=== PATIENT | male | born 1940 | race Caucasian/White ===

== ENCOUNTER → 2023-07-17 13:29 | Outpatient (REF) | payer MEDICARE, SELFPAY ==
[2023-07-17 19:09] LABS: % Basophils 0.6 % (0-2); % Eosinophils 5.6 % (0-6); % Immature Granulocytes 0.3 % (0-0.5); % Lymphocytes 28.2 % (20.5-51.1); % Monocytes 6.8 % (1.7-9.3); % Neutrophils 58.5 % (42.2-75.2); Absolute Eosinophils 0.4 10^3/uL (0-0.7); Absolute Lymphocytes 1.8 10^3/uL (1.2-3.4); Absolute Monocytes 0.4 10^3/uL (0.1-0.6); Absolute Neutrophils 3.8 10^3/uL (1.4-6.5); Hemoglobin 12.5 g/dL (13.0-18.0); Mean Corp Hgb Conc. 33.8 g/dL (33.0-37.0); Mean Corpuscular Hgb 34.6 pg (27.0-31.0); Mean Corpuscular Volume 102.5 fL (80.0-94.0); Mean Platelet Volume 10.1 fL (7.4-10.4); Nucleated Red Blood Cells % 0 % (-); Platelet Count 295 10^3/uL (130-400); Red Blood Cell Count 3.61 10^6/uL (4.70-6.10); Red Cell Dist. Width 12.6 % (11.5-14.5); White Blood Cell Count 6.5 10^3/uL (4.8-10.8)
[2023-07-17 19:28] LABS: ALT (SGPT) 11 U/L (0-50); AST (SGOT) 21 U/L (17-59); Albumin 4.7 g/dl (3.5-5.0); Alkaline Phosphatase 122 U/L (38-126); Blood Urea Nitrogen 22 mg/dl (9-20); Calcium 9.9 mg/dl (8.4-10.2); Carbon Dioxide 25 mmol/L (22-30); Chloride 101 mmol/L (98-107); Glucose 90 mg/dl (70-99); HDL Cholesterol 106 mg/dl; Potassium 5.2 mmol/L (3.5-5.1); Sodium 137 mmol/L (135-145); Total Bilirubin 0.7 mg/dl (0.2-1.3); Total Protein 7.6 g/dl (6.3-8.2); Triglyceride 116 mg/dl (10-149); Very Low Density Lipoprotein 23 mg/dl (0-30); eGFR 34.79
[2023-07-17 19:34] LABS: LDL Cholesterol, Calculated 184 mg/dl; Total Cholesterol 313 mg/dl (50-199)
== END ==
LOC: CLAB 13:29
PROVIDERS: ATTENDING PHYSICIAN Physician Assistant Medical
DX: I10 Essential (primary) hypertension (principal); D64.9 Anemia, unspecified; E78.2 Mixed hyperlipidemia
CPT/HCPCS: 36415; 80053; 80061; 85025

== ENCOUNTER 2023-08-14 14:52 | Emergency (ER) | payer MEDICARE, SELFPAY ==
[2023-08-14 14:52] VITALS: BP 131/58
[2023-08-14 14:54] VITALS: BP 131/58; BMI 23.7
[2023-08-14 15:00] VITALS: BP 132/58
--- NOTE | 2023-08-14 15:28 | ED.GENMED ---
History of Present Illness
<Jakub Reina PA-C - Last Filed: 08/14/23 15:35>
General
Chief Complaint: Post Operative Problem(s)
Source: patient
Exam Limitations: none
Time Seen by Provider: 08/14/23 15:14
Travel History
Have you had any contact with someone who has COVID-19?: No
Do you have any symptoms of coronavirus? Fever > 100 degrees, chills, cough, shortness of breath, sore throat, loss of taste or smell, muscle aches, or headache?: No
History of Present Illness
History of Present Illness:
82-year-old male presents complaining of pain and swelling to left inguinal region. 6 days ago he had an inguinal hernia repair. He saw his family doctor in follow-up today and they sent him here for evaluation and imaging secondary to increased
swelling of the left inguinal site. Patient denies fever. He vomited once yesterday. He has not moved his bowels significantly.
Past History
<Jakub Reina PA-C - Last Filed: 08/14/23 15:35>
Past History
ED Past Medical History: CAD, Hypercholesterolemia and Other
ED Past Surgical History: Other
Social History
Tobacco: Smoker
Drug: None
Personal: Partner
Living: with family
Family History
Family History: Other
Phy Exam
<Jakub Reina PA-C - Last Filed: 08/14/23 15:35>
Physical Exam
Physical Exam:
General: Well-appearing male no acute respiratory distress
HEENT: Normocephalic atraumatic
Heart: Regular rate and rhythm no murmurs
Lungs: CTA No wheeze
Abd: soft, tedner to LLQ, mild swelling about incision. No erythema. No drainage. Glue still intact. This is somewhat firm to the touch.
Extremities: No cyanosis
Course
<Jakub Reina PA-C - Last Filed: 08/14/23 15:35>
Orders/Labs/Results
Orders:
Orders
08/14/23 15:22
CT Abd/pel Without Iv Or Oral Urgent
Reason For Exam: abdominal pain, recent left inguinal hernia repair
Complete Blood Count/With Diff Urgent
Comprehensive Metabolic Panel Urgent
Lactate Level [Lactic Acid] Urgent
08/14/23 16:35
Case Management Consult ONCE
Case Management Consult: Discharge Planning
Abnormal Lab Results
08/14/23
15:22
RBC 2.92 L 10^6/uL
(4.70-6.10)
Hgb 10.1 L g/dL
(13.0-18.0)
Hct 29.4 L %
(39.0-52.0)
MCV 100.7 H fL
(80.0-94.0)
MCH 34.6 H pg
(27.0-31.0)
Plt Count 418 H 10^3/uL
(130-400)
Abs Immat Gran (auto) 0.1 H 10^3/uL
(0-0.05)
Absolute Monos (auto) 0.7 H 10^3/uL
(0.1-0.6)
Immature Gran % 1.0 H %
(0-0.5)
Lymphocytes % 15.6 L %
(20.5-51.1)
BUN 33 H mg/dl
(9-20)
Creatinine 2.1 H mg/dL
(0.7-1.3)
Glucose 105 H mg/dl
(70-99)
08/14/23 15:22
08/14/23 15:22
Vital Signs
Initial and Last Documented VS:
Initial Vital Signs
BP
131/58
08/14/23 14:52
Last Documented Vital Signs
Temp Pulse Resp BP Pulse Ox
98.6 F 72 20 141/54 97
08/14/23 14:54 08/14/23 20:30 08/14/23 20:30 08/14/23 20:00 08/14/23 20:15
<Jamey Fierro PA-C - Last Filed: 08/14/23 20:56>
Orders/Labs/Results
Orders:
Orders
08/14/23 15:22
CT Abd/pel Without Iv Or Oral Urgent
Reason For Exam: abdominal pain, recent left inguinal hernia repair
Complete Blood Count/With Diff Urgent
Comprehensive Metabolic Panel Urgent
Lactate Level [Lactic Acid] Urgent
08/14/23 16:35
Case Management Consult ONCE
Case Management Consult: Discharge Planning
Abnormal Lab Results
08/14/23
15:22
RBC 2.92 L 10^6/uL
(4.70-6.10)
Hgb 10.1 L g/dL
(13.0-18.0)
Hct 29.4 L %
(39.0-52.0)
MCV 100.7 H fL
(80.0-94.0)
MCH 34.6 H pg
(27.0-31.0)
Plt Count 418 H 10^3/uL
(130-400)
Abs Immat Gran (auto) 0.1 H 10^3/uL
(0-0.05)
Absolute Monos (auto) 0.7 H 10^3/uL
(0.1-0.6)
Immature Gran % 1.0 H %
(0-0.5)
Lymphocytes % 15.6 L %
(20.5-51.1)
BUN 33 H mg/dl
(9-20)
Creatinine 2.1 H mg/dL
(0.7-1.3)
Glucose 105 H mg/dl
(70-99)
08/14/23 15:22
08/14/23 15:22
Vital Signs
Initial and Last Documented VS:
Initial Vital Signs
BP
131/58
08/14/23 14:52
Last Documented Vital Signs
Temp Pulse Resp BP Pulse Ox
98.6 F 72 20 141/54 97
08/14/23 14:54 08/14/23 20:30 08/14/23 20:30 08/14/23 20:00 08/14/23 20:15
<Jakub Reina PA-C - Last Filed: 08/14/23 15:35>
MDM/Problems Addressed
Differential Diagnosis Includes:
Left lower abdominal pain. Recent inguinal hernia repair. Will check for abscess or fluid collection such as seroma or recurrent hernia with CT scan. Labs pending.
<Jamey Fierro PA-C - Last Filed: 08/14/23 20:56>
*Critical Care Note
Total Time (30-74mins, 75-104mins- exclusive of procedures): Not Applicable
<Jamey Fierro PA-C - Last Filed: 08/14/23 20:56>
Update Note
Update Note:
Assumed care of patient at shift change 1800 from Anant Reina PA-C, awaiting CT results. Patient is 1 week status post left inguinal hernia repair reportedly done at [facility]. Saw his PCP today and was referred in due to
increased swelling.
1944: CT report reviewed. Fluid is likely anticipated postoperative swelling, patient reexamined individually by myself, wound is well-approximated with no dehiscence or erythema, no warmth. No clinical signs of infection. Patient has scheduled
follow-up with his surgeon in 3 days, no indication for antibiotics
ED Attending Note
<Jakub Reina PA-C - Last Filed: 08/14/23 15:35>
-
Portions of this chart may have been created with voice recognition software.� Occasional wrong word or��sound alike� substitutions may have occurred due to the inherent limitations of voice recognition software.
Discharge Plan
Departure
Patient Disposition: Home (Routine Discharge)
Date of Disposition: 08/14/23
Time of Disposition: 20:12
Patient with high blood pressure during this ER visit?: No
Discharge Problem:
Inguinal swelling, Post operative fluid collection
Prescriptions:
No Action
citalopram 20 MG tablet
20 mg PO DAILY
finasteride 5 MG tablet
5 mg PO DAILY
hydrocodone-acetaminophen 1 EACH tablet
1 - 2 ea PO PRN PRN (Reason: pain)
aspirin 81 MG tablet,delayed release (DR/EC)
81 mg PO DAILY
gabapentin 100 MG capsule
300 mg PO HS
omega 5-kih-jmn-fish oil [Fish Oil] 1 EACH capsule
1 ea PO DAILY
red yeast rice 600 MG tablet
1,200 mg PO DAILY
prednisone 10 MG tablet
10 mg PO DAILY Qty: 12 0RF
albuterol sulfate 1 PUFF HFA aerosol inhaler
2 puff inhalation R Q4HPRN PRN (Reason: shortness of breath or wheeze) Qty: 1 0RF
oxycodone 5 MG tablet
5 mg PO Q4HPRN PRN (Reason: breakthrough/severe pain) Qty: 10 0RF
prochlorperazine maleate 10 MG tablet
10 mg PO Q8HPRN PRN (Reason: vomiting) Qty: 10 0RF
Referrals:
Jamey Anna PA-C [Family Provider] -
Activity Restrictions/Additional Instructions:
Follow up with your surgeon on Thursday
The fluid seen on CT scan is likely normal post operative fluid. There is no sign of infection on imaging or lab work
Interventions
Interventions:
*Risk Screen - Suicide Last Done: 08/14/23 14:54
*General Assessment Last Done: 08/14/23 14:54
*Neglect/Abuse Screening Last Done: 08/14/23 14:54
ED- Fall Risk Assessment Last Done: 08/14/23 15:02
*ED COVID-19 Vaccine History Last Done: 08/14/23 14:54
ED-Skin Assessment Last Done: 08/14/23 15:02
Discharge Date and Time
Print Language: BOLIVIAN
[2023-08-14 15:39] LABS: % Basophils 0.5 % (0-2); % Eosinophils 2.2 % (0-6); % Lymphocytes 15.6 % (20.5-51.1); % Monocytes 8.7 % (1.7-9.3); Absolute Eosinophils 0.2 10^3/uL (0-0.7); Absolute Immature Granulocytes 0.1 10^3/uL (0-0.05); Absolute Lymphocytes 1.3 10^3/uL (1.2-3.4); Absolute Monocytes 0.7 10^3/uL (0.1-0.6); Absolute Neutrophils 5.8 10^3/uL (1.4-6.5); Hematocrit 29.4 % (39.0-52.0); Hemoglobin 10.1 g/dL (13.0-18.0); Mean Corp Hgb Conc. 34.4 g/dL (33.0-37.0); Mean Corpuscular Hgb 34.6 pg (27.0-31.0); Mean Corpuscular Volume 100.7 fL (80.0-94.0); Mean Platelet Volume 9.8 fL (7.4-10.4); Nucleated Red Blood Cells % 0 % (-); Platelet Count 418 10^3/uL (130-400); Red Blood Cell Count 2.92 10^6/uL (4.70-6.10); Red Cell Dist. Width 12.3 % (11.5-14.5); White Blood Cell Count 8.1 10^3/uL (4.8-10.8)
[2023-08-14 15:51] LABS: Lactic Acid 1.1 mmol/L (0.7-2.0)
[2023-08-14 15:58] LABS: ALT (SGPT) 15 U/L (0-50); AST (SGOT) 24 U/L (17-59); Albumin 3.7 g/dl (3.5-5.0); Alkaline Phosphatase 104 U/L (38-126); Blood Urea Nitrogen 33 mg/dl (9-20); Calcium 9.1 mg/dl (8.4-10.2); Carbon Dioxide 22 mmol/L (22-30); Chloride 104 mmol/L (98-107); Estimated Creatinine Clearance 22 ml/min; Glucose 105 mg/dl (70-99); Potassium 4.7 mmol/L (3.5-5.1); Sodium 135 mmol/L (135-145); Total Bilirubin 0.7 mg/dl (0.2-1.3); Total Protein 6.6 g/dl (6.3-8.2); eGFR 30.85
[2023-08-14 16:00] VITALS: BP 128/58
[2023-08-14 17:00] VITALS: BP 114/62
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
[2023-08-14 20:00] VITALS: BP 141/54
== END 2023-08-14 20:45 | disposition home or self-care (01) ==
LOC: EMR 14:52
PROVIDERS: Physician Assistant; EMERGENCY PHYSICIAN Emergency Medicine; FAMILY PHYSICIAN Physician Assistant Medical
DX: R19.09 Other intra-abdominal and pelvic swelling, mass and lump (principal); L76.34 Postprocedural seroma of skin and subcutaneous tissue following other procedure; Z98.890 Other specified postprocedural states; Y83.8 Other surgical procedures as the cause of abnormal reaction of the patient, or of later complication, without mention of misadventure at the time of the procedure; F17.200 Nicotine dependence, unspecified, uncomplicated
CPT/HCPCS: 99284; 74176; 80053; 83605; 85025

== ENCOUNTER 2023-08-31 11:44 | Emergency (ER) | payer MEDICARE, SELFPAY ==
[2023-08-31 11:48] VITALS: BP 130/59
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
[2023-08-31 15:57] VITALS: BP 131/65; BMI 21.9
[2023-08-31 16:56] LABS: % Basophils 0.5 % (0-2); % Eosinophils 3.5 % (0-6); % Immature Granulocytes 0.3 % (0-0.5); % Lymphocytes 24.7 % (20.5-51.1); % Monocytes 8.4 % (1.7-9.3); % Neutrophils 62.6 % (42.2-75.2); Absolute Eosinophils 0.2 10^3/uL (0-0.7); Absolute Lymphocytes 1.5 10^3/uL (1.2-3.4); Absolute Monocytes 0.5 10^3/uL (0.1-0.6); Absolute Neutrophils 3.7 10^3/uL (1.4-6.5); Hematocrit 30.4 % (39.0-52.0); Hemoglobin 10.3 g/dL (13.0-18.0); Mean Corp Hgb Conc. 33.9 g/dL (33.0-37.0); Mean Corpuscular Hgb 34.2 pg (27.0-31.0); Mean Platelet Volume 9.7 fL (7.4-10.4); Nucleated Red Blood Cells % 0 % (-); Platelet Count 315 10^3/uL (130-400); Red Blood Cell Count 3.01 10^6/uL (4.70-6.10); Red Cell Dist. Width 12.8 % (11.5-14.5)
[2023-08-31 17:17] LABS: ALT (SGPT) 10 U/L (0-50); AST (SGOT) 19 U/L (17-59); Albumin 4.1 g/dl (3.5-5.0); Alkaline Phosphatase 115 U/L (38-126); Blood Urea Nitrogen 33 mg/dl (9-20); Calcium 9.3 mg/dl (8.4-10.2); Carbon Dioxide 23 mmol/L (22-30); Chloride 104 mmol/L (98-107); Estimated Creatinine Clearance 25 ml/min; Glucose 104 mg/dl (70-99); Potassium 5.1 mmol/L (3.5-5.1); Sodium 139 mmol/L (135-145); Total Bilirubin 0.5 mg/dl (0.2-1.3); Total Protein 7.2 g/dl (6.3-8.2); eGFR 32.71
[2023-08-31 18:20] LABS: Urine Albumin 2+ (Neg - Trace); Urine Bilirubin Negative (Negative); Urine Character Clear (Clear); Urine Color Yellow; Urine Glucose Negative (Negative); Urine Ketone Negative (Negative); Urine Leukocyte Negative (Negative); Urine Nitrite Negative (Negative); Urine Occult Blood Negative (Negative); Urine Specific Gravity 1.015 (<1.030); Urine Urobilinogen Negative (Neg - 1+)
[2023-08-31 18:43] LABS: Urine Red Blood Cell 0-2 /HPF (0-2)
[2023-08-31] MEDS: NORCO 5/325 1 TABLET PO (19:16)
[2023-08-31 19:17] VITALS: BP 144/66
== END 2023-08-31 21:03 | disposition home or self-care (01) ==
LOC: EMR 11:44
PROVIDERS: Physician Assistant; EMERGENCY PHYSICIAN Emergency Medicine; FAMILY PHYSICIAN Physician Assistant Medical
DX: T81.89XA Other complications of procedures, not elsewhere classified, initial encounter (principal); N50.812 Left testicular pain; N50.89 Other specified disorders of the male genital organs; Y83.8 Other surgical procedures as the cause of abnormal reaction of the patient, or of later complication, without mention of misadventure at the time of the procedure; M25.552 Pain in left hip; I25.10 Atherosclerotic heart disease of native coronary artery without angina pectoris; E78.00 Pure hypercholesterolemia, unspecified; J44.9 Chronic obstructive pulmonary disease, unspecified; N40.0 Benign prostatic hyperplasia without lower urinary tract symptoms; M19.90 Unspecified osteoarthritis, unspecified site; F41.9 Anxiety disorder, unspecified; G89.29 Other chronic pain; G62.9 Polyneuropathy, unspecified; F17.200 Nicotine dependence, unspecified, uncomplicated; Z96.653 Presence of artificial knee joint, bilateral; Z88.1 Allergy status to other antibiotic agents; Z88.8 Allergy status to other drugs, medicaments and biological substances; Z79.82 Long term (current) use of aspirin
CPT/HCPCS: 99284; 76870; 80053; 81003; 81015; 85025; 93976

== ENCOUNTER → 2023-09-23 08:54 | Outpatient (REF) | payer MEDICARE, SELFPAY | LOC: REG 08:54 | PROVIDERS: ATTENDING PHYSICIAN Physician Assistant Medical | DX: M25.552 Pain in left hip (principal) | CPT/HCPCS: 73502 ==

== ENCOUNTER → 2023-11-12 13:09 | Outpatient (REF) | payer MEDICARE, SELFPAY | LOC: PAVMRI 13:09 | PROVIDERS: ATTENDING PHYSICIAN Physician Assistant; FAMILY PHYSICIAN Physician Assistant Medical | DX: M54.16 Radiculopathy, lumbar region (principal) | CPT/HCPCS: 72148 ==

== ENCOUNTER → 2024-01-11 12:16 | Outpatient (REF) | payer MEDICARE, SELFPAY ==
[2024-01-11 13:28] LABS: Blood Urea Nitrogen 28 mg/dl (9-20); Calcium 9.4 mg/dl (8.4-10.2); Carbon Dioxide 22 mmol/L (22-30); Chloride 107 mmol/L (98-107); Glucose 92 mg/dl (70-99); Potassium 4.9 mmol/L (3.5-5.1); Sodium 143 mmol/L (135-145); eGFR 30.66
== END ==
LOC: RCS 12:16
PROVIDERS: ATTENDING PHYSICIAN Physical Medicine & Rehabilitation; FAMILY PHYSICIAN Physician Assistant Medical
DX: Z01.818 Encounter for other preprocedural examination (principal)
CPT/HCPCS: 36415; 80048; 93005

== ENCOUNTER → 2024-03-16 13:01 | Outpatient (REF) | payer OTHER, SELFPAY ==
[2024-03-16 14:20] LABS: % Basophils 0.5 % (0-2); % Eosinophils 5.7 % (0-6); % Immature Granulocytes 0.3 % (0-0.5); % Lymphocytes 30.4 % (20.5-51.1); % Monocytes 6.2 % (1.7-9.3); % Neutrophils 56.9 % (42.2-75.2); Absolute Eosinophils 0.4 10^3/uL (0-0.7); Absolute Monocytes 0.4 10^3/uL (0.1-0.6); Absolute Neutrophils 3.8 10^3/uL (1.4-6.5); Hematocrit 30.2 % (39.0-52.0); Hemoglobin 9.6 g/dL (13.0-18.0); Mean Corp Hgb Conc. 31.8 g/dL (33.0-37.0); Mean Corpuscular Hgb 34.5 pg (27.0-31.0); Mean Corpuscular Volume 108.6 fL (80.0-94.0); Mean Platelet Volume 9.9 fL (7.4-10.4); Nucleated Red Blood Cells % 0 % (-); Platelet Count 266 10^3/uL (130-400); Red Blood Cell Count 2.78 10^6/uL (4.70-6.10); Red Cell Dist. Width 12.6 % (11.5-14.5); White Blood Cell Count 6.6 10^3/uL (4.8-10.8)
== END ==
LOC: REG 13:01
PROVIDERS: ATTENDING PHYSICIAN Family Medicine; OTHER PHYSICIAN Specialist
DX: D64.9 Anemia, unspecified (principal)
CPT/HCPCS: 36415; 85025

== ENCOUNTER → 2024-03-25 12:10 | Outpatient (REF) | payer OTHER, SELFPAY ==
[2024-03-25 13:48] VITALS: BMI 26.7
[2024-03-25 13:55] LABS: Hematocrit 28.2 % (39.0-52.0); Hemoglobin 9.5 g/dL (13.0-18.0); Mean Corp Hgb Conc. 33.7 g/dL (33.0-37.0); Mean Corpuscular Hgb 35.7 pg (27.0-31.0); Mean Platelet Volume 9.8 fL (7.4-10.4); Platelet Count 319 10^3/uL (130-400); Red Blood Cell Count 2.66 10^6/uL (4.70-6.10); Red Cell Dist. Width 12.8 % (11.5-14.5); White Blood Cell Count 6.9 10^3/uL (4.8-10.8)
[2024-03-25 14:54] LABS: ALT (SGPT) 11 U/L (0-50); AST (SGOT) 16 U/L (17-59); Albumin 4.2 g/dl (3.5-5.0); Alkaline Phosphatase 89 U/L (38-126); Blood Urea Nitrogen 28 mg/dl (9-20); Calcium 9.1 mg/dl (8.4-10.2); Carbon Dioxide 23 mmol/L (22-30); Chloride 109 mmol/L (98-107); Estimated Creatinine Clearance 19 ml/min; Glucose 105 mg/dl (70-99); Iron 72 ug/dl (49-181); Potassium 4.9 mmol/L (3.5-5.1); Sodium 142 mmol/L (135-145); Total Bilirubin 0.2 mg/dl (0.2-1.3); Total Protein 6.8 g/dl (6.3-8.2); eGFR 28.99
[2024-03-25 15:03] LABS: Percent Saturation 29 % (20-50); Total Iron Binding Capacity 246 ug/dl (261-462)
[2024-03-25 16:20] LABS: Vitamin B12 236 pg/ml (239-931)
[2024-03-26 08:47] LABS: Glycohemoglobin (HgbA1c) 5.7 % (4.0-5.6)
[2024-03-30 12:46] VITALS: BMI 26.7
== END ==
LOC: REG 12:10
PROVIDERS: ATTENDING PHYSICIAN Specialist; FAMILY PHYSICIAN Family Medicine; REFERRING PHYSICIAN Surgery Vascular Surgery
DX: M16.12 Unilateral primary osteoarthritis, left hip (principal)
CPT/HCPCS: 36415; 80053; 82607; 82728; 83036; 83540; 83550; 85027; 86850; 86900; 86901; 87070

== ENCOUNTER → 2024-04-04 08:37 | Outpatient (REF) | payer OTHER, SELFPAY | LOC: RAD 08:37 | PROVIDERS: ATTENDING PHYSICIAN Surgery Vascular Surgery; FAMILY PHYSICIAN Family Medicine | DX: I73.9 Peripheral vascular disease, unspecified (principal); I65.21 Occlusion and stenosis of right carotid artery | CPT/HCPCS: 93880; 93922 ==

== ENCOUNTER → 2024-05-03 10:30 | Outpatient (REF) | payer MEDICARE, SELFPAY ==
[2024-05-03 12:21] LABS: Hematocrit 31.7 % (39.0-52.0); Hemoglobin 10.4 g/dL (13.0-18.0); Mean Corp Hgb Conc. 32.8 g/dL (33.0-37.0); Mean Corpuscular Hgb 34.8 pg (27.0-31.0); Mean Platelet Volume 10.2 fL (7.4-10.4); Platelet Count 254 10^3/uL (130-400); Red Blood Cell Count 2.99 10^6/uL (4.70-6.10); Red Cell Dist. Width 12.8 % (11.5-14.5); White Blood Cell Count 5.7 10^3/uL (4.8-10.8)
[2024-05-03 12:46] LABS: ALT (SGPT) 11 U/L (0-50); AST (SGOT) 18 U/L (17-59); Albumin 4.3 g/dl (3.5-5.0); Alkaline Phosphatase 85 U/L (38-126); Blood Urea Nitrogen 26 mg/dl (9-20); Calcium 8.7 mg/dl (8.4-10.2); Carbon Dioxide 25 mmol/L (22-30); Chloride 104 mmol/L (98-107); Glucose 110 mg/dl (70-99); Potassium 4.6 mmol/L (3.5-5.1); Sodium 140 mmol/L (135-145); Total Bilirubin 0.4 mg/dl (0.2-1.3); Total Protein 6.9 g/dl (6.3-8.2); eGFR 28.99
[2024-05-03 14:25] LABS: Glycohemoglobin (HgbA1c) 5.6 % (4.0-5.6)
[2024-05-03 14:40] VITALS: BMI 26.3
[2024-05-12 11:47] VITALS: BMI 26.3
== END ==
LOC: REG 10:30
PROVIDERS: ATTENDING PHYSICIAN Specialist; FAMILY PHYSICIAN Family Medicine
DX: M16.12 Unilateral primary osteoarthritis, left hip (principal)
CPT/HCPCS: 36415; 80053; 83036; 85027; 86850; 86900; 86901; 87070

== ENCOUNTER → 2024-05-06 07:08 | Outpatient (REF) | payer MEDICARE, SELFPAY | LOC: RCS 07:08 | PROVIDERS: ATTENDING PHYSICIAN Family Medicine; REFERRING PHYSICIAN Internal Medicine Cardiovascular Disease | DX: R01.1 Cardiac murmur, unspecified (principal); Z01.818 Encounter for other preprocedural examination | CPT/HCPCS: 93005; 93306 ==

== ENCOUNTER → 2024-05-13 08:58 | Outpatient (REF) | payer MEDICARE, SELFPAY | LOC: HWRAD 08:58 | PROVIDERS: ATTENDING PHYSICIAN Surgery Vascular Surgery; FAMILY PHYSICIAN Family Medicine | DX: I71.60 Thoracoabdominal aortic aneurysm, without rupture, unspecified (principal); I71.43 Infrarenal abdominal aortic aneurysm, without rupture | CPT/HCPCS: 71250; 74176 ==

== ENCOUNTER → 2024-07-11 12:58 | Outpatient (REF) | payer MEDICARE, SELFPAY ==
[2024-07-11 13:32] LABS: % Basophils 0.5 % (0-2); % Eosinophils 8.2 % (0-6); % Immature Granulocytes 0.3 % (0-0.5); % Lymphocytes 29.3 % (20.5-51.1); % Monocytes 5.4 % (1.7-9.3); % Neutrophils 56.3 % (42.2-75.2); Absolute Eosinophils 0.5 10^3/uL (0-0.7); Absolute Lymphocytes 1.9 10^3/uL (1.2-3.4); Absolute Monocytes 0.4 10^3/uL (0.1-0.6); Absolute Neutrophils 3.7 10^3/uL (1.4-6.5); Hemoglobin 10.8 g/dL (13.0-18.0); Mean Corp Hgb Conc. 32.7 g/dL (33.0-37.0); Mean Corpuscular Hgb 33.5 pg (27.0-31.0); Mean Corpuscular Volume 102.5 fL (80.0-94.0); Mean Platelet Volume 9.6 fL (7.4-10.4); Nucleated Red Blood Cells % 0 % (-); Platelet Count 300 10^3/uL (130-400); Red Blood Cell Count 3.22 10^6/uL (4.70-6.10); Red Cell Dist. Width 12.6 % (11.5-14.5); White Blood Cell Count 6.5 10^3/uL (4.8-10.8)
[2024-07-11 14:38] LABS: ALT (SGPT) 11 U/L (0-50); AST (SGOT) 18 U/L (17-59); Albumin 4.7 g/dl (3.5-5.0); Alkaline Phosphatase 111 U/L (38-126); Blood Urea Nitrogen 23 mg/dl (9-20); Carbon Dioxide 25 mmol/L (22-30); Chloride 107 mmol/L (98-107); Glucose 94 mg/dl (70-99); HDL Cholesterol 73 mg/dl; Iron 75 ug/dl (49-181); LDL Cholesterol, Calculated 205 mg/dl; Potassium 4.6 mmol/L (3.5-5.1); Sodium 144 mmol/L (135-145); Total Bilirubin 0.7 mg/dl (0.2-1.3); Total Cholesterol 318 mg/dl (50-199); Total Protein 7.5 g/dl (6.3-8.2); Triglyceride 201 mg/dl (10-149); Very Low Density Lipoprotein 40 mg/dl (0-30); eGFR 34.57
[2024-07-11 15:12] LABS: Microalbumin, Random Urine > 57.0 mg/dl (0.6-1.7)
[2024-07-11 15:43] LABS: Folate 7.9 ng/ml (2.76-20); Vitamin B12 354 pg/ml (239-931)
[2024-07-12 09:44] LABS: Glycohemoglobin (HgbA1c) 5.7 % (4.0-5.6)
== END ==
LOC: REG 12:58
PROVIDERS: ATTENDING PHYSICIAN Family Medicine
DX: Z01.818 Encounter for other preprocedural examination (principal); R73.03 Prediabetes; N18.32 Chronic kidney disease, stage 3b; E78.2 Mixed hyperlipidemia; D64.9 Anemia, unspecified
CPT/HCPCS: 36415; 80053; 80061; 82043; 82570; 82607; 82728; 82746; 83036; 83540; 85025

== ENCOUNTER → 2024-12-08 13:40 | Outpatient (REF) | payer MEDICARE, SELFPAY ==
[2024-12-08 14:41] LABS: Hematocrit 33.5 % (39.0-52.0); Hemoglobin 10.8 g/dL (13.0-18.0); Mean Corp Hgb Conc. 32.2 g/dL (33.0-37.0); Mean Corpuscular Volume 101.8 fL (80.0-94.0); Nucleated Red Blood Cells % 0 % (-); Platelet Count 262 10^3/uL (130-400); Red Cell Dist. Width 13.4 % (11.5-14.5)
[2024-12-08 15:03] LABS: ALT (SGPT) < 10 U/L (0-50); AST (SGOT) 17 U/L (17-59); Albumin 4.6 g/dl (3.5-5.0); Alkaline Phosphatase 88 U/L (38-126); Blood Urea Nitrogen 25 mg/dl (9-20); Calcium 9.4 mg/dl (8.4-10.2); Carbon Dioxide 26 mmol/L (22-30); Chloride 107 mmol/L (98-107); Glucose 95 mg/dl (70-99); Potassium 4.6 mmol/L (3.5-5.1); Sodium 139 mmol/L (135-145); Total Protein 7.2 g/dl (6.3-8.2); eGFR 32.51
[2024-12-08 15:33] LABS: TSH 0.81 uIU/ml (0.47-4.68)
[2024-12-08 15:52] LABS: Vitamin B12 420 pg/ml (239-931)
== END ==
LOC: REG 13:40
PROVIDERS: ATTENDING PHYSICIAN Physician Assistant Medical
DX: R42 Dizziness and giddiness (principal); R53.83 Other fatigue
CPT/HCPCS: 36415; 80053; 82607; 84443; 85025

== ENCOUNTER → 2025-02-06 07:54 | Outpatient (REF) | payer MEDICARE, SELFPAY ==
[2025-02-06 17:58] LABS: Hematocrit 33.2 % (39.0-52.0); Hemoglobin 10.2 g/dL (13.0-18.0); Mean Corp Hgb Conc. 30.7 g/dL (33.0-37.0); Mean Corpuscular Volume 109.2 fL (80.0-94.0); Nucleated Red Blood Cells % 0 % (-); Platelet Count 249 10^3/uL (130-400); Red Cell Dist. Width 14.6 % (11.5-14.5)
[2025-02-06 18:12] LABS: ALT (SGPT) < 10 U/L (0-50); AST (SGOT) 16 U/L (17-59); Albumin 4.3 g/dl (3.5-5.0); Alkaline Phosphatase 80 U/L (38-126); Blood Urea Nitrogen 22 mg/dl (9-20); Calcium 9.2 mg/dl (8.4-10.2); Carbon Dioxide 27 mmol/L (22-30); Chloride 108 mmol/L (98-107); Glucose 81 mg/dl (70-99); HDL Cholesterol 73 mg/dl; LDL Cholesterol, Calculated 165 mg/dl; Potassium 4.5 mmol/L (3.5-5.1); Sodium 138 mmol/L (135-145); Total Protein 7.1 g/dl (6.3-8.2); Very Low Density Lipoprotein 28 mg/dl (0-30); eGFR 36.66
[2025-02-06 18:43] LABS: TSH 1.04 uIU/ml (0.47-4.68)
[2025-02-06 19:02] LABS: Vitamin B12 248 pg/ml (239-931)
[2025-02-07 09:04] LABS: Glycohemoglobin (HgbA1c) 5.6 % (4.0-5.9)
== END ==
LOC: CLAB 07:54
PROVIDERS: ATTENDING PHYSICIAN Physician Assistant Medical
DX: R73.03 Prediabetes (principal); I10 Essential (primary) hypertension; N18.32 Chronic kidney disease, stage 3b; E78.2 Mixed hyperlipidemia; D64.9 Anemia, unspecified; R42 Dizziness and giddiness; R53.83 Other fatigue
CPT/HCPCS: 36415; 80053; 80061; 82607; 83036; 84443; 85025